=== PATIENT | male | born 1980 ===

== ENCOUNTER 2021-09-21 08:24 | Emergency (ER) | payer SELFPAY ==
[~2021-09-21] VITALS: Ht 162.6 cm; Wt 63.6 kg
[2021-09-21] MEDS ORDERED: AMOX/K CLAV875 M1 PO (09:07)
[2021-09-21] MEDS ORDERED: NEO/POLY/HC (09:07)
[2021-09-21 09:50] LABS: HEMATOCRIT 45.1 % (39.0-50.0); HEMOGLOBIN 15.2 g/dl (14.0-18.0); IMMATURE GRANULOCYTES 0.3 % (0.0-5.0); MEAN CELL VOLUME 85.6 fL CALC (80.0-100.0); MEAN CORPUSCULAR HGB 28.8 pG CALC (26.0-32.0); MEAN CORPUSCULAR HGB CONC 33.7 g/dL CAL (32.0-36.0); NEUT# 17.53 thou/uL (1.82-7.42); RED BLOOD COUNT 5.27 mill/uL (4.70-6.10); RED CELL DISTRI WIDTH 12.7 % (11.5-15.5)
[2021-09-21 10:10] LABS: ALBUMIN 4.4 g/dL (3.2-5.0); ALKALINE PHOSPHATASE 81 u/l (38-126); ANION GAP 16 (6-22 (CALC)); BILIRUBIN, TOTAL 1.8 mg/dL (0.0-1.4); BUN 9 mg/dL (9-20); BUN/CREATININE RATIO 12 (12-20 (CALC)); CARBON DIOXIDE 26 mmol/l (22-30); CHLORIDE 99 mmol/l (95-108); CREATININE 0.7 mg/dL (0.7-1.3); GFR > 60 ML/MIN (>=60 (CALC)); GFR FOR AFR.AMER. > 60 ML/MIN (>=60 (CALC)); POTASSIUM 3.9 mmol/l (3.5-5.1); SGOT/AST 24 u/l (17-59); SODIUM 137 mmol/l (137-146); TOTAL PROTEIN 7.8 g/dL (6.3-8.2)
[2021-09-21 14:55] VITALS: BP 110/46
== END 2021-09-21 14:55 | disposition short-term general hospital (02) | DRG 122 ==
LOC: ED 08:24
PROVIDERS: Family Medicine
DX: H05.012 Cellulitis of left orbit (principal)
CPT/HCPCS: Q9967